=== PATIENT | male | born 1990 | race African-American/Black ===

== ENCOUNTER 2021-04-28 22:42 | Emergency (ER) | payer OTHER ==
[~2021-04-28] VITALS: Ht 180.3 cm; Wt 97.1 kg
[2021-04-28] MEDS ORDERED: VITAMINS A & D1 EACH PO (22:48)
[2021-04-29 00:20] LABS: ABSOLUTE NEUTROPHILS 2.5 thou/uL (1.4-8.2); BASOPHILS 0.4 % (0.0-2.0); EOSINOPHILS 1.3 % (0.0-3.0); HEMOGLOBIN 13.6 gm/dL (14.0-18.0); LYMPHOCYTES 45.6 % (24.0-44.0); MCH 29.1 pg (26.0-34.0); MCHC 32.4 g/dL (28.0-37.0); MCV 89.8 fL (80.0-100.0); MONOCYTES 10.2 % (1.0-8.0); PLATELET COUNT 244 thou/uL (150-400); POLYS 42.5 % (36.0-66.0); RBC 4.68 mil/uL (4.50-6.00); WBC 5.8 thou/uL (4.0-11.0)
[2021-04-29 00:21] LABS: CALCIUM 8.7 mg/dL (8.5-10.1); CREATININE 1.4 mg/dL (0.7-1.3); POTASSIUM 3.7 mmol/L (3.5-5.1)
[2021-04-29 00:32] LABS: MAGNESIUM 1.8 mg/dL (1.8-2.4); TOTAL BILIRUBIN 0.3 mg/dL (0.2-1.0); TOTAL PROTEIN 7.2 g/dL (6.4-8.2)
[2021-04-29 03:12] VITALS: BP 128/78
--- NOTE | 2021-04-29 07:08 | EKG ---
[address] [address] ELECTROCARDIOGRAM REPORT Name: YOON RILEY [id number] Admission: 04/28/21 Attend Phys: Discharge: 04/29/21 Date of : [birth year] Report #: [id number] [facility] ED Test Date: 2021-04-28 Test Time: 23:22:16 Pat Name: YOON RILEY Department: Room: Gender: Bench Lathe Operator: RAMY : 1990 Requested By: Estrella Barakat Order Number: [id number] MD: Zaheer Cruz Measurements Intervals [place] Rate: 73 P: -18 GA: 153 QRS: 48 QRSD: 88 T: 26 QT: 359 QTc: 396 Interpretive Statements Sinus rhythm No previous ECG available for comparison Electronically Signed On 04-29-2021 7:07:57 [employer]PRESENTATIVE by Zaheer Cruz [email or web address] <ELECTRONICALLY SIGNED> By: Zaheer Cruz MD, [facility] 04/29/21 [id number] Zaheer Cruz MD, FACC /EPI
== END 2021-04-29 03:13 | disposition home or self-care (01) ==
LOC: ER 22:42
PROVIDERS: Emergency Medicine
DX: R07.89 Other chest pain (principal); R00.2 Palpitations; F41.9 Anxiety disorder, unspecified; F12.90 Cannabis use, unspecified, uncomplicated; Z79.899 Other long term (current) drug therapy